=== PATIENT | female | born 1945 | race Caucasian/White ===

== ENCOUNTER 2023-10-13 02:35 | Day surgery (SDC) | payer OTHER, SELFPAY ==
[2023-10-13] VITALS (20 sets, daily range): BP systolic 105–156; BP diastolic 58–84; PULSE 64–80; RESP 16–20; TEMP 36.6–37.3; O2SAT 20–100; BMI 19.3
--- OUTSIDE RECORDS SUMMARY | 2023-10-13 02:52 | XMS_ITS | Data Portability ---
Author Name Unknown Address [address] [place] [address] Phone [phone] Organization [facility], ADMIN Address [address] [address] Assessment Encounter Date Assessment Date Assessment LastModified by Organization Details LastModified Time 06/17/2020 06/17/2020 Your health is very important. Exercise regularly, have a well balanced diet, and try to maintain a healthy weight. Discussed screening for precancerous lesions of the cervix (pap smear; HPV testing). Discussed screening for colon cancer. Discussed review of systems. Referral to primary care as appropriate. Schedule follow up appointment in 2 years. The patient voiced her understanding. All questions were answered in full. Recommend screening mammography (and tomosynthesis, as appropriate). [email or web address] Not available 06/21/2020 09:53:52 Plan of Treatment Reminders Order Date Submit Date Provider Last Modified By Organization Details Last Modified Time Details Appointments None recorded. Lab pap, IG + reflex HPV if ASC-U 2019 020 [place] [facility] ([facility], [address] [place] [address], [place], [address], 0 14:08:49 Referral None recorded. Procedures None recorded. Surgeries None recorded. Imaging None recorded. Medication Orders Estrace 0.01% (0.1 mg/gram) vaginal cream 2019 020 INTERFACE Not available 0 15:44:42 Patient TargetsNo targets recorded. Patient InstructionsNo instructions recorded. Reason for Referral None Reported. Results Created Date Observation Date Name Description Value Unit Range Abnormal Flag LastModifiedBy Organization Detail LastModifiedTime 06/19/20 20 06/22/2020 pap, IG + refle x HPV if ASC-U diagnosis: commen t Not Available [facility] ([facility]) [address] [place], [address], 06/22/2020 14:08:49 06/19/20 20 06/22/2020 pap, IG + refle x HPV if ASC-U specimen adequacy: commen t Not Available [facility] ([facility]) [address] [place], [address], 06/22/2020 14:08:49 06/19/20 20 06/22/2020 pap, IG + refle x HPV if ASC-U clinician provided ICD10: commen t Not Available [facility] ([facility]) [address] [place], [address], 06/22/2020 14:08:49 06/19/20 20 06/22/2020 pap, IG + refle x HPV if ASC-U performed by: commen t Not Available [facility] ([facility]) [address] [place], [address], 06/22/2020 14:08:49 06/19/20 20 06/22/2020 pap, IG + refle x HPV if ASC-U . . Not Available [facility] ([facility]) [address] [place], [address], 06/22/2020 14:08:49 06/19/20 20 06/22/2020 pap, IG + refle x HPV if ASC-U note: commen t Not Available [facility] ([facility]) [address] [place], [address], 06/22/2020 14:08:49 06/19/20 20 06/22/2020 pap, IG + refle x HPV if ASC-U test methodology: commen t Not Available [facility] ([facility]) [address] [place], [address], 06/22/2020 14:08:49 06/19/20 20 06/22/2020 pap, IG + refle x HPV if ASC-U . commen t Not Available [facility] ([facility]) [address] [facility], [place], [address], 06/22/2020 14:08:49 06/17/20 20 05/26/2020 MAMMO , diagn ostic , bilat eral No observ ation record ed. Not Available 0 10:50:52 Result Notes None recorded. Problems Name Status Onset Date Resolution Date Notes Provider Name and Address Organization Details Recorded Time History of clinical finding in subject Active Arnel cabrera, [facility] 06/17/2020 10:00:56 Problem Notes None recorded. Procedures Surgical History Date Name Laterality Status Provider Name and Address Organization Details Recorded Time 05/26/20 20 Date of Last Mammogram completed Arnel cabrera, [facility] 06/17/2020 10:08:46 07/20/19 18 Date of Last Pap Smear completed Arnel cabrera, [facility] 06/17/2020 10:11:25 extraction of cataract completed Arnel cabrera, [facility] 06/17/2020 10:43:30 Dilation and Curettage completed Arnel cabrera, [facility] 06/17/2020 10:43:56 Unlisted px ant segment eye completed Arnel cabrera, [facility] 06/17/2020 10:44:37 procedure on lymph node completed Arnel cabrera, [facility] 06/17/2020 10:45:22 kyphoplasty of fracture of cervical spine using fluoroscopic guidance completed Arnel cabrera, [facility] 06/17/2020 10:46:07 tonsilectomy/monalisa noids completed Arnel cabrera, [facility] 06/17/2020 10:46:34 Imaging Results Imaging Date Name Status LastModified by Organiz ation Details LastModified Time 05/26/2020 MAMMO, diagnostic, bilateral completed [email or web address] Information not available 06/17/2020 10:50:52 Procedure Notes None recorded. Medical Equipment None Reported. Allergies Allergen ID Allergen Name Allergen Category Reaction Reaction Severity Criticality Documentation Date Start Date Code Code System Note Provider Name and Address Organization Details Recorded Time 71695 amoxicill in medicatio n Not available Not available Not available 06/17/2020 723 RxNorm Naidaly Seo null, [place] - [facility] 0 10:00:26 59405 Substance with sulfonami de structure and antibacte rial mechanism of action (substanc e) medicatio n Not available Not available Not available 06/17/2020 32249 8003 SNOMED Naidaly Seo null, [place] - [facility] 0 10:00:32 11446 Plaquenil medicatio n Not available Not available Not available 06/17/202053799 2 RxNorm Naidaly Seo null, [place] - [facility] 0 10:00:40 51286 hydroxych loroquine medicatio n rash Not available Not available 06/17/2020 5521 RxNorm Naidaly Seo null, [place] - [facility] 0 15:14:47 Medications Name Sig Start Date Stop Date Status Note LastModified by Organization Details LastModified Time Evoxac 30 mg capsule take 1 capsule (30 mg) by oral route 3 times per day 2013 active Outside Prescripti on Not Available Not Available Not Available estradiol 0.01% (0.1 mg/gram) vaginal cream APPLY 1-2 GRAMS BY VAGINAL ROUTE 3 TIMES PER WEEK 2021 active Not Available Not Available Not Avai lable Glucosamin e Chondroiti n Maximum Strength 500 mg-400 mg capsule Take by oral route. active Not Available Not Available No t Available magnesium active Not Available Not Emilie ilable Not Available Vitamin C active Not Available Not Emilie ilable Not Available vitamin B complex active Not Available Not Available Not Available zinc active Not Available Not Availa ble Not Available biotin active Not Available Not Availa ble Not Available chromium active Not Available Not Avai lable Not Available Vitamin D3 active Not Available Not Av ailable Not Available Calcium 500 active Not Available Not Available Not Available DHA Algal-900 active Not Available Not Available No t Available Vitals Date Recorded Body height Body weight Systolic blood pressure Diastolic blood pressure Provider Name and Address Organization Details Last Updated DateTime 04/13/2010 168.91 cm 62817.084 4 g 106 mm[Hg] 58 mm[Hg] Not Available [facility] 02/09/2020 05:30:49 Date Recorded Body height Body weight Systolic blood pressure Diastolic blood pressure Provider Name and Address Organization Details Last Updated DateTime 07/20/2017 168.91 cm 48378.714 9 g 116 mm[Hg] 70 mm[Hg] Not Available [facility] 02/09/2020 05:30:49 Date Recorded Body height Body weight Systolic blood pressure Diastolic blood pressure Provider Name and Address Organization Details Last Updated DateTime 04/26/2012 168.91 cm 70921.676 7 g 100 mm[Hg] 60 mm[Hg] Not Available [facility] 02/09/2020 05:30:49 Date Recorded Body height Body weight Systolic blood pressure Diastolic blood pressure Provider Name and Address Organization Details Last Updated DateTime 05/02/2016 168.91 cm 60684.842 4 g 110 mm[Hg] 60 mm[Hg] Not Available [facility] 02/09/2020 05:30:49 Date Recorded Body height Body weight Systolic blood pressure Diastolic blood pressure Provider Name and Address Organization Details Last Updated DateTime 04/19/2011 168.91 cm 19824.230 9 g 104 mm[Hg] 68 mm[Hg] Not Available [facility] 02/09/2020 05:30:49 Date Recorded Body height Body weight Systolic blood pressure Diastolic blood pressure Provider Name and Address Organization Details Last Updated DateTime 04/01/2008 168.91 cm 88473.453 8 g 124 mm[Hg] 74 mm[Hg] Not Available [facility] 02/09/2020 05:30:49 Date Recorded Body height Body weight Systolic blood pressure Diastolic blood pressure Provider Name and Address Organization Details Last Updated DateTime 05/04/2015 168.91 cm 83188.560 5 g 116 mm[Hg] 70 mm[Hg] Not Available [facility] 02/09/2020 05:30:49 Date Recorded Body height Body weight Systolic blood pressure Diastolic blood pressure Provider Name and Address Organization Details Last Updated DateTime 01/08/2014 168.91 cm 15734.307 2 g 114 mm[Hg] 68 mm[Hg] Not Available [facility] 02/09/2020 05:30:49 Date Recorded Body height Body weight Systolic blood pressure Diastolic blood pressure Provider Name and Address Organization Details Last Updated DateTime 04/09/2009 168.91 cm 21351.823 3 g 112 mm[Hg] 64 mm[Hg] Not Available [facility] 02/09/2020 05:30:49 Date Recorded Body height Body weight Systolic blood pressure Diastolic blood pressure Provider Name and Address Organization Details Last Updated DateTime 01/22/2015 168.91 cm 83348.366 2 g 100 mm[Hg] 60 mm[Hg] Not Available [facility] 02/09/2020 05:30:49 Date Recorded Body height Body mass index (BMI) Body weight Systolic blood pressure Diastolic blood pressure Provider Name and Address Organization Details Last Updated DateTime 06/17/2020 170.18 cm 17.9 kg/m2 74368.53 g 114 mm[Hg] 74 mm[Hg] Arnel cabrera [facility] 0 15:13:49 Social History Question Answer Notes LastModified by Organizat ion Details LastModified Time Tobacco Smoking Status Never Smoker Arnel cabrera [facility] 06/17/2020 10:40:38 What Is Your Level Of Alcohol Consumption? Occasional [email or web address] Information not available 06/17/2020 What Is Your Level Of Caffeine Consumption? Occasional [email or web address] Information not available 06/17/2020 Which Illicit Or Recreational Drugs Have You Used? None [email or web address] Information not available 06/17/2020 Do You Or Have You Ever Used E-cigarettes Or Vape? Never Used Electronic Cigarettes [email or web address] Information not available 06/17/2020 Marital Status [email or web address] Informat ion not available 06/17/2020 What Was The Date Of Your Most Recent Tobacco Screening? 06/17/2020 [email or web address] Information not available 06/17/2020 Performs Monthly Self-breast Exam? Yes [email or web address] Information no t available 06/17/2020 Do You Use Your Seat Belt Or Car Seat Routinely? Yes [email or web address] Information not available 06/17/2020 Do You Or Have You Ever Used Smokeless Tobacco? [id number] [email or web address] Information not available 06/17/2020 How Much Tobacco Do You Smoke? No [email or web address] Information not available 06/17/2020 How Many Years Have You Smoked Tobacco? 0 Information not available 06/17/2020 Sex: Female Functional Status Question Answer Note LastModified by Organization D etails LastModified Time What is your exercise level? Moderate [email or web address] Information not available 06/17/2020 Mental Status None recorded. Family History Relationship Description Onset Age of this Age Resolved Age Notes Unspecified Relation Depressive disorder Father Diabetes mellitus Father Heart disease Mother Heart disease Mother Hypertensive disorder Sister Family history of stroke Medical History No medical history recorded. Gynecological History Statement/Question Response Date of Last Mammogram 05/26/2020 Date of Last Colonoscopy Menses Monthly N Date of Last Pap Smear 07/20/2017 04/09/2009 Age at Menarche 13 Obstetrics History GPAL:G 2 P 0 0 2 0 Type Value Multiple Births 0 Full Term 0 Induced 0 Spontaneous 2 Premature 0 Living 0 Ectopics 0 Total 2 Immunizations Vaccine Type Date Status Provider Name and Address Organization Details Recorded Time influenza, injectable, quadrivalent 04/26/2021 completed MON[facility] 05/03/2021 10:25:16 Past Encounters Encounter ID Performer Location Encounter Start Date Encounter Closed Date Diagnosis/Indication Diagnosis SNOMED-CT Code [id number] Claudia Landon MD [address] [place] [id number] 06/17/2020 14:43:48 06/17/2020 16:41:04 Gynecologic examination [id number] Atrophic vaginitis 36308 000 Health Concerns Section Related Observation LastModified by Organization Detai ls LastModified Time None Recorded Concern Status LastModified by Organization Details LastModified Time None Recorded Advance Directives Directive None Recorded Payers Encounter Date Sequence Insurance Name Policy Number Policy Bullock Covered Member ID Bullock Member ID Guarantor Name 06/17/2020 1 [employer] (MEDICARE REPLACEMENT/A DVANTAGE - PPO) Jt Levi [id number] Jt Levi Notes Date Note Type Note Provider Name and Address Organization Details Recorded Time 06/17/2020 text/html HPI Notes: Omar kelly [employer] - [facility] Reported by patient. Menstrual cycle: menopausal Urinary symptoms: No hematuria; No incontinence Vulvar complaints: None Vaginal complaints: Normal vaginal discharge Breast: No breast pain; No breast lump; No nipple discharge Sexual complaints: No sexual complaints; No pain during intercourse/sexual function; Normal libido Menopausal Symptoms: No menopausal symptoms; Normal vaginal lubrication Psychological symptoms: No depression; No anxiety; No PMDD Multimedia Assistant offered per [facility] policy. Multimedia Assistant was DECLINED. Claudia Landon MD [address] [facility] [address], [place], [address], [facility] 06/21/2020 09:54:27 OBGyn Episode No OBEpisode recorded.
--- NOTE | 2023-10-13 03:15 | PM.IMHP1 ---
Hospitalist- H&P: HPI History of Present Illness Date Seen: 10/13/23 Chief complaint: cholecystitis Narrative: Nora Levi is a 78 year old female with a past medical history notable for Sjogren's syndrome but otherwise healthy who presented with abdominal pain. The patient started having abdominal pain the day prior to admission while on a car ride back to [place]. She initially thought it was a digestive issue so she took a probiotic as well as some activated charcoal with some minimal improvement initially. However the pain continued to worsen throughout the day. It is located in the right upper quadrant worse with movement. It was associated with nausea, 2 episodes of vomiting the day prior to admission. She has not had vomiting on the day of admission. However she had fevers and shaking chills Meds Home Medications and Allergies Allergies Allergy/AdvReac Type Severity Reaction Status Date / Time hydroxychloroquine Allergy Verified 10/13/23 03:15 Sulfa (Sulfonamide Allergy Verified 10/13/23 03:15 Antibiotics)
--- NOTE | 2023-10-13 03:36 | W.PM.TELEH&P ---
Telehealth- H&P: HPI History of Present Illness Date Seen: 10/13/23 Chief complaint: cholecystitis Narrative: Nora Levi is seen as an Interactive Telehealth visit. Nora Levi is a 78 year old female with past medical history notable for Sjogren's syndrome but otherwise healthy who presented with abdominal pain. The patient started having abdominal pain the day prior to admission while on a car ride back to [place]. She initially thought it was a digestive issue so she took a probiotic as well as some activated charcoal with some minimal improvement initially. However the pain continued to worsen throughout the day. It is located in the right upper quadrant worse with movement. It was associated with nausea, 2 episodes of vomiting the day prior to admission. She has not had vomiting on the day of admission. However she had fevers and shaking chills which prompted her to seek treatment at [facility] in [facility]. There she was noted to be febrile, CT scan was concerning for acute cholecystitis. She had mild leukocytosis. She was treated with ceftriaxone and Flagyl. No history of prior abdominal surgery. No previous episodes of pain like this. She denies any other new concerns. Review of Systems Status of ROS: Reports: 10 or more systems reviewed and unremarkable except as noted in History and below [facility] Medical History (Updated 10/13/23 @ 03:39 by Venkatesh Brown MD) Sjogren syndrome, unspecified ?M35.00 - Sjogren syndrome, unspecified (ICD-10) Surgical History (Updated 10/13/23 @ 03:39 by Venkatesh Brown MD) History of spinal surgery ?Z98.890 - Other specified postprocedural states (ICD-10) History of tonsillectomy ?Z90.89 - Acquired absence of other organs (ICD-10) Family History (Updated 10/13/23 @ 03:40 by Venkatesh Brown MD) Father Cardiovascular disease Mother Cardiovascular disease Social History (Updated 10/13/23 @ 03:40 by Venkatesh Brown MD) What is your current living situation?: I presently have a place to live Problems where you live: no known problems Problems where you live details: N/A In the past 12 months, utilities in danger of being shut off: no In past 12 months, lack of transportation kept you from medical appts, meetings, work, or getting things needed for daily living: no In the past 12 mos, have been you worried that your food would run out before you had money to buy more?: never true In the past 12 mos, the food you bought just didn't last and you didn't have money to buy more?: never true Smoking Status: Never smoker Do you use any of these nicotine containing products: None Second hand tobacco smoke exposure: No How often do you have a drink containing alcohol: monthly or less Alcohol type: wine How many standard drinks containing alcohol do you have on a typical day: 1 or 2 How often do you have six or more drinks on one occasion: Never AUDIT-C Alcohol total score: 1 Non-prescribed substance use: denies use Caffeine: Yes (Cup of coffee every so often) How often does anyone, including family, friends and others, physically hurt you: never How often does anyone, including family, friends and others, insult or talk down to you: never How often does anyone, including family, friends and others, threaten you with harm: never How often does anyone, including family, friends and others, scream or curse at you: never service: No Meds Home Medications and Allergies Allergies Allergy/AdvReac Type Severity Reaction Status Date / Time amoxicillin Allergy Rash Verified 10/13/23 04:07 hydroxychloroquine Allergy Verified 10/13/23 03:15 Sulfa (Sulfonamide Allergy Verified 10/13/23 03:15 Antibiotics) Exam Narrative Exam Narrative: Physical Exam GENERAL: ?vital signs reviewed, well developed and nourished, in no distress HEENT: pupils are equal and round, extraocular movements are grossly within normal limits and oral mucosa is dry. NECK: Supple without lymphadenopathy or thyromegaly according to nursing staff examination observation HEART: Regular rate and rhythm without any rubs,gallops. Possible faint 1 out of 6 systolic murmur LUNGS: Clear to auscultation bilaterally with good air movement throughout ABDOMEN: Observation from nurse assisted exam, abdomen appears soft, moderately tender in the RUQ, and nondistended with Positive bowel sounds noted. EXTREMITIES: Strength and sensation is observed to be grossly within normal limits in the upper and lower extremities.? No focal strength deficit is observed. SKIN:? Observed warm and dry with color normal Assessment and Plan Assessment and plan (1) Acute cholecystitis: Status: Acute (2) Sjogren syndrome, unspecified: Status: Acute Plan Acute cholecystitis General surgery aware, plan for OR in a.m. Patient received ceftriaxone and Flagyl at outside emergency room, which will be continued WBC 11.0, hemoglobin 11.8, platelets 139. LFTs were within normal limits Per report from general surgery imaging was concerning for acute cholecystitis, they accepted transfer but requested hospitalist admission Sjogren's syndrome Not on immunosuppression other history includes HAY History of MALT Full code confirmed on admission Prior to admission home medications that were felt to be needed immediately have been ordered. The remainder of the home medications will await pharmacy reconciliation and will be ordered by the attending provider in the a.m. Telehealth Visit: Today's History and Physical is provided via interactive telehealth by Dr. Venkatesh Brown MD. Patient is located at [facility]. Provider is located at [facility]. Nursing staff assisted with the patient's exam. The visit being done today meets criteria for a telehealth visit and the patient or patients parent/guardian is aware the visit is a telehealth visit. Start Time: 308 End Time: 315 Medical Complexity: Moderate ~~~~~~~~~~~~~~~~ Dr. Venkatesh Brown ~~~~~~~~~~~~~~~~ Disclaimer: This note may contain dictation using voice recognition software. As a result, there may be errors that have gone undetected. Please consider this when interpreting information found in this note. Telehealth: Statement Statement Telehealth Visit: Today's History and Physical is provided via interactive telehealth by Venkatesh Brown MD.? Patient is located at [facility].? Provider is located at [facility].? Nursing staff assisted with the patient's exam. The visit being done today meets criteria for a telehealth visit and the patient or patient?s parent/guardian is aware the visit is a telehealth visit. Camera Start Time: 03:08 Camera End Time: 03:15
[2023-10-13] MEDS: HYDROmorphone 0.5 mg/0.5 ml inj IVP (04:00)
[2023-10-13] MEDS: SODIUM CHLORIDE 0.9 % (FLUSH) 10 ML SYRINGE 5 ML IVF ×2 (04:00→08:20)
--- NOTE | 2023-10-13 05:52 | XR_ITS ---
Patient: CRISPIN CALVERT Facility:?[facility] Patient ID:?[id number] Site Patient ID:?[id number]. Site :?[id number] Study:?XRay-Chest 1V PORTABLE-10/13/2023 6:27:14 AM Ordering Physician:MATT Final Report: INDICATION: Preop TECHNIQUE: Chest 1 views. COMPARISON: None. FINDINGS: Cardiovascular and mediastinum: Heart size and vasculature are normal in caliber and appearance. Lungs and pleural spaces: Hyperinflated lungs and interstitial lung markings likely a combination of COPD and mild interstitial edema. Small bilateral pleural effusions. No visualized pneumothorax. No focal consolidation. Bones and soft tissues: Sclerotic lesion or vertebral body augmentation lower thoracic spine. IMPRESSION: Hyperinflated lungs and interstitial lung markings likely a combination of COPD and mild interstitial edema. Small bilateral pleural effusions. Sclerotic lesion or vertebral body augmentation lower thoracic spine. Dictated by Caden Will MD @ 10/13/2023 6:59:23 AM Signed by:?Caden Will MD @10/13/2023 6:59:23 AM (Electronic Signature)
[2023-10-13] MEDS: 0.9 % SODIUM CHLORIDE 250 ml IV (06:01)
[2023-10-13] MEDS: metroNIDAZOLE 500 MG/100 ML PIGGYBACK 100 MG IVPB (06:01)
--- NOTE | 2023-10-13 07:27 | PC.NURSE ---
ADMISSION/SHIFT NOTE: Pt was a direct admission from [address] via EMS. Pt fatigued, A&O. Oxygen saturations mid 90's on RA. Pain reported 6/10, PRN Dilaudid given with pt reporting relief. Denies N/V, SOB, and CP. NPO since lunch yesterday. Pt has not yet been out of bed. EKG done this AM. Antibiotics given as ordered. Plan for surgery today.
--- NOTE | 2023-10-13 08:29 | PM.GSCN ---
History of Present Illness Consult details Date Seen: 10/13/23 Consult date: 10/13/23 Narrative: 78-year-old female with Sjogren's disease presented to outside hospital with right mid abdominal pain and was found to have acute cholecystitis. The outside hospital emergency room contacted our hospital for evaluation and treatment since we did not have a general surgeon on-call at their facility. Patient states that she developed right mid/right lower quadrant abdominal pain on Monday. She was traveling on Monday and her pain was getting more severe. The pain was worse with movement and coughing. Patient had vomiting on Monday but not yesterday. She did not eat much yesterday. Her last bowel movement was yesterday but she has not been passing much gas. She had an episode of chills but she did not take her temperature to find out if she had a fever. At the outside hospital ER (see epic) she was found to have a normal WBC of 11. Her liver function tests were normal with exception of AST of 47. Her lipase was normal. Her basic metabolic panel had sodium 132 with the rest of electrolytes be normal. Her hemoglobin was 11.8 and that was slightly decreased from 12.3 in December of 2022. An abdominal CT was obtained that showed distended gallbladder with thickened gallbladder wall and surrounding edema. There was no evidence of cholelithiasis. There are mildly prominent intrahepatic bile ducts but the common bile duct appeared normal. Radiology also commented on possible mucus plugging in the right middle lobe of unknown etiology. Review of Systems Narrative: General: no fevers HENT: no problems swallowing CV: no shortness of breath Resp: patient usually has coughing when she gets up in the morning. In that resolved spontaneously. GI: See above Skin: no new rashes Musculoskeletal: Patient had back surgery Neuro: no muscle weakness Psyche: no depression, no anxiety PFSH [facility] Medical History Sjogren syndrome, unspecified ?M35.00 - Sjogren syndrome, unspecified (ICD-10) Surgical History (Updated 10/13/23 @ 08:34 by Edna Porter MD) Hx of superficial parotidectomy ?Z98.890 - Other specified postprocedural states (ICD-10) History of spinal surgery ?Z98.890 - Other specified postprocedural states (ICD-10) History of tonsillectomy ?Z90.89 - Acquired absence of other organs (ICD-10) Family History Father Cardiovascular disease Mother Cardiovascular disease Social History What is your current living situation?: I presently have a place to live Problems where you live: no known problems Problems where you live details: N/A In the past 12 months, utilities in danger of being shut off: no In past 12 months, lack of transportation kept you from medical appts, meetings, work, or getting things needed for daily living: no In the past 12 mos, have been you worried that your food would run out before you had money to buy more?: never true In the past 12 mos, the food you bought just didn't last and you didn't have money to buy more?: never true Smoking Status: Never smoker Do you use any of these nicotine containing products: None Second hand tobacco smoke exposure: No How often do you have a drink containing alcohol: monthly or less Alcohol type: wine How many standard drinks containing alcohol do you have on a typical day: 1 or 2 How often do you have six or more drinks on one occasion: Never AUDIT-C Alcohol total score: 1 Non-prescribed substance use: denies use Caffeine: Yes (Cup of coffee every so often) How often does anyone, including family, friends and others, physically hurt you: never How often does anyone, including family, friends and others, insult or talk down to you: never How often does anyone, including family, friends and others, threaten you with harm: never How often does anyone, including family, friends and others, scream or curse at you: never service: No Meds Home Medications and Allergies Allergies Allergy/AdvReac Type Severity Reaction Status Date / Time amoxicillin Allergy Rash Verified 10/13/23 04:07 hydroxychloroquine Allergy Verified 10/13/23 03:15 Sulfa (Sulfonamide Allergy Verified 10/13/23 03:15 Antibiotics) Exam Narrative: Exam Narrative: General appearance: Alert, cooperative, and in no distress Pulmonary: Chest symmetric, lungs clear bilaterally Cardiovascular Heart: Regular rate and rhythm, S1, S2, no murmurs/rubs/gallops Gastrointestinal Abdominal: soft, not distended patient is tender to palpation in the right lower quadrant and right upper quadrant, she has positive Mahmood sign and localized peritonitis in the right upper quadrant., Skin: Normal skin color, texture, and turgor. No rashes or lesions. Psychiatric: Alert, cooperative, normal affect. Const: Vital Signs, click to edit/add: Vital Signs - 24 hr 10/13/23 03:05 Pulse Rate [Left P ulse Oximeter] 72 Respiratory Rate 18 Blood Pressure [Le ft Arm] 133/73 Pulse Oximetry 96 Oxygen Delivery Me thod Room Air Results Labs Labs: All other labs normal. Progress Note:A&P Assessment and plan (1) Acute cholecystitis: Status: Acute Plan 78-year-old female presents with acute cholecystitis. I discussed with the patient her laboratory findings and her CT findings. Her gallbladder appears very distended and has an inflammatory rind around the gallbladder. On clinical exam patient has localized peritonitis in the right upper quadrant concerning for acute cholecystitis. I recommended to proceed with laparoscopic cholecystectomy. The procedure was discussed in detail. The risks associated procedure including infection, bleeding, injury to the common bile duct, and injury to intra-abdominal organs were all discussed with the patient, and she agreed to proceed. We also discussed her incidental findings on her CT scan. Radiology mentioned possible mucus plugging in the right middle lobe. Patient has no history of COPD and this could be related to her acute cholecystitis and not taking deep breaths due to pain. Patient is not a smoker and does not have history of COPD. Patient's EKG did not show any heart strain and she had no symptoms of chest pain. Patient's chest x-ray showed increased interstitial markings and small pleural effusions bilaterally. This was discussed with the hospitalist and given patient's no history of cardiac issues and cardiac symptoms and her severe acute cholecystitis, this is most likely atelectasis due to hypoventilation. Patient is very active and exercises 3 times a week and walks all around [place]. Patient was deemed to be safe to proceed with surgery today.
[2023-10-13] MEDS: LACTATED RINGERS 1000 ML 1,000 ML 100 ML IV ×2 (08:46→09:33)
--- NOTE | 2023-10-13 08:46 | P.GSOP_ITS ---
Operative Note Date of procedure: 10/13/23 Pre-op diagnosis: 1. Acute cholecystitis. Post-op diagnosis: 1. Acute hemorrhagic cholecystitis. Type of Procedure: 1. Laparoscopic cholecystectomy. Indications: 78-year-old female was transferred to all Hospital from outside facility with acute cholecystitis. Patient started to have pain 2 days ago. The pain was in the right mid abdomen/right lower quadrant. The pain was getting severe and was worse with movement and coughing. Upon her workup she was found to have a normal WBC. Her AST was slightly elevated but the rest of the liver function tests and lipase were normal. CT scan of the abdomen was obtained and showed distended gallbladder with pericholecystic inflammation and fluid. The common bile duct was thought to be normal on her CT scan and she had mild intrahepatic bile duct dilatation. On clinical exam patient had tenderness to palpation in the right mid abdomen and right upper quadrant with localized peritonitis in the right upper quadrant. Given patient's history and her CT findings, acute cholecystitis was suspected, and laparoscopic cholecystectomy was recommended. The procedure was discussed in detail. The risks associated procedure including infection, bleeding, injury to intra-abdominal organs, and common bile duct injury were all discussed with the patient, and she agreed to proceed. Procedure Description: After discussing the risks and benefits of the procedure, the patient signed informed consent.? The operative site was marked and the patient was brought to the operating room and placed on the operating table in supine position.? Care was taken to pad the patient's pressure points.?? The patient was then intubated by anesthesia.?? The operative site was then prepped and draped in the usual sterile fashion.? A time-out was then performed. A 5-mm laparoscopy port was placed in the left upper quadrant guided by a 5-mm laparoscope placed into a translucent trochar.~ Passage through the layers of the abdominal wall was visualized with the laparoscope. At least 2 attempts were made to advance this scope into the abdomen but the abdomen was not insufflating well and it was difficult to tell if the trocar was in the abdomen. I then elected to into the abdomen through the infraumbilical incision. Local anesthetic was injected inferior to the umbilicus. The skin was incised with a scalpel. The anterior fascia was grasped with Jeovany clamps and incised with Metzenbaum scissors. Posterior fascia and peritoneum were grasped with Nancy clamps and incised with scissors. 5 mm port was then advanced into the abdomen and abdomen was insufflated. A pneumoperitoneum was established. The left lower quadrant was examined and peritoneal opening from previous attempted to enter the abdomen was noted. Falciform ligament had air from attempted entrance. No intra-abdominal organ injury was identified. 5 mm port was then placed under direct visualization in the left upper quadrant. The abdominal working cavity was small. The infraumbilical port was then upsized to a 10 mm port. Two additional 5 mm ports were placed under direct visualization in the right lower quadrant and right mid abdomen. The gallbladder was identified and appeared to be hemorrhagic. A laparoscopic needle and 60 mL syringe were used to decompress the gallbladder. About 10 mL of bloody appearing bile was suctioned out and sent for culture. The infundibulum was grasped and retracted laterally, exposing the peritoneum overlying the triangle of Calot. This was then divided and exposed in a blunt fashion and with hook cautery. Common bile duct was not identified but care was taken not to injure it. The inflammatory rind was thickened around the gallbladder making the dissection difficult. The node of Calot was identified and proximal feeding vessel to this node was clipped with 5 mm clip proximally and distally and divided with Metzenbaum scissors. The cystic duct was then dissected circumferentially. The cystic artery appeared to be immediately posterior to the cystic duct, and I was not able to visualize clearly the structures posterior to the cystic artery. The cystic duct and the cystic artery were both going into the gallbladder. The cystic duct was then clipped with two 5 mm clips on the patient's side and a single clip on the specimen side and divided with scissors. I was then able to visualize the cystic artery clearly. This was going into the gallbladder. The cystic artery was then clipped with 5 mm clips distally and proximally and divided between the clips. An inflammatory rind in the medial gallbladder fossa was going into the gallbladder. It was difficult to tell if it was a small blood vessel or inflammatory rind. I elected to clip this medially with a 5 mm clip and divided with scissors near the gallbladder. This was an inflammatory rind. The gallbladder was dissected from the liver bed in retrograde fashion using hookcautery. The gallbladder was firmly attached to the liver at the liver edge. Bleeding from the liver edge was controlled with cautery. The gallbladder was placed into an Endo-Catch bag and removed through the infraumbilical incision. Skin incision and fascial incision had to be enlarged at the infraumbilical incision to accommodate removal of the gallbladder. This was done under direct visualization. Surgical site was examined for bleeding and No bleeding was seen in the surgical field. The fascia of the infraumbilical incision was then closed with a running 0-0 vicryl suture. This closure was examined intra-abdominally and no intra- abdominal structures were incarcerated in the closure. Pneumoperitoneum was completely reduced after viewing removal of the trocars under direct vision. The dermis of infraumbilical incision was then reapproximated with interrupted 3-0 Vicryl sutures. The skin was then closed with 4-0 monocryl and steristrips were applied. The infraumbilical skin incision was closed with Dermabond. Instrument, sponge, and needle counts were correct at closure and at the conclusion of the case. The patient was transferred to PACU in stable condition. Findings: Acute hemorrhagic cholecystitis. Anesthesia: GETA Surgeon: Edna Porter MD Estimated blood loss (mL): 10 Additional Specimen Information: 1. Bile for culture. 2. Gallbladder. Condition: stable Disposition: PACU
[2023-10-13] MEDS: CEFAZOLIN 1 GM inj IVP (09:04)
--- NOTE | 2023-10-13 09:42 | SUR.OPER ---
Gallbladder fluid sent for aerobic and anerobic culture and gram stain
[2023-10-13] MEDS: BUPIVACAINE 0.25% 30 ML INJECTION (10:42)
--- NOTE | 2023-10-13 11:06 | W.ANESCHARGE ---
Anesthesia Charges Start Date/Time Anesthesia Start Date: 10/13/23 Anesthesia Start Time: 08:46 Stop Date/Time Anesthesia Stop Date: 10/13/23 Anesthesia Stop Time: 11:03 Summary Extremes of Age - Over 70 or under 1: MDA
--- NOTE | 2023-10-13 11:07 | W.ANESCHARGE ---
Anesthesia Charges Start Date/Time Anesthesia Start Date: 10/13/23 Anesthesia Start Time: 08:46 Stop Date/Time Anesthesia Stop Date: 10/13/23 Anesthesia Stop Time: 11:03
--- NOTE | 2023-10-13 11:55 | SUR.PHASEI ---
Patient met anesthesia discharge criteria from PACU. Communication with med/surg nurse regarding O2 saturation.
[2023-10-13] MEDS: ERTAPENEM 1 GM in 0.9 % SODIUM CHLORIDE Mini-bag 100 ML IVPB (13:43)
--- NOTE | 2023-10-13 14:05 | PC.NURSE ---
End of Shift Note: Patient went to surgery and return to the unit around 1200. Has been sleeping since her arrival to the unit but does arouse easily. She has not complained of any pain since she has returned to the unit. is at bedside. will continue to monitor until next shift arrives. Have not been able to teach her the IS as she is sleeping.
--- NOTE | 2023-10-13 17:18 | P.DS_ITS ---
DS: Providers Provider Date Seen: 10/13/23 Primary care physician: Shanell Peña MD Attending Physician on discharge: Edna Porter MD DS: Diagnosis Discharge Diagnosis (1) Acute cholecystitis: Status: Acute (2) S/P laparoscopic cholecystectomy: Status: Acute DS: Summary Hospital Course Hospital Course: Patient presented to ER with acute cholecystitis. She underwent lap cholecystectomy. She did well post operatively. She had minimal pain. She was tolerating regular diet, urinating and ambulating. Time Spent with Patient Time attestation: Total time spent providing and/or coordinating discharge services: Exam Narrative: Exam Narrative: not see prior to discharge Const: Vital Signs, click to edit/add: Vital Signs - 24 hr 10/13/23 03:05 10/13/23 06:40 10/13/23 11:05 Temperature 97.9 F 99.2 F Pulse Rate 68 80 Pulse Rate [Left P ulse Oximeter] 72 Respiratory Rate 18 18 20 Blood Pressure 141/71 H 139/82 Blood Pressure [Le ft Arm] 133/73 Pulse Oximetry 96 100 90 Oxygen Delivery Me thod Room Air Room Air Nasal Cannula Oxygen Flow Rate 2 10/13/23 11:10 10/13/23 11:15 10/13/23 11:20 Temperature Pulse Rate 78 78 79 Pulse Rate [Left P ulse Oximeter] Respiratory Rate 20 20 20 Blood Pressure 156/84 H 154/81 H 149/83 H Blood Pressure [Le ft Arm] Pulse Oximetry 95 96 96 Oxygen Delivery Me thod Oxygen Flow Rate 10/13/23 11:25 10/13/23 11:30 10/13/23 11:37 Temperature 99.2 F Pulse Rate 79 78 76 Pulse Rate [Left P ulse Oximeter] Respiratory Rate 20 20 20 Blood Pressure 144/81 H 140/78 H 149/81 H Blood Pressure [Le ft Arm] Pulse Oximetry 96 98 20 L Oxygen Delivery Me thod Nasal Cannula OxyMask Oxygen Flow Rate 2 5 10/13/23 12:10 10/13/23 12:23 10/13/23 12:45 Temperature 98.5 F 98.6 F 97.8 F Pulse Rate 69 73 70 Pulse Rate [Left P ulse Oximeter] Respiratory Rate 16 16 16 Blood Pressure 132/64 124/60 105/63 Blood Pressure [Le ft Arm] Pulse Oximetry 92 90 90 Oxygen Delivery Me thod Room Air Room Air Room Air Oxygen Flow Rate 10/13/23 13:00 10/13/23 13:30 10/13/23 14:00 Temperature 97.8 F 98.5 F 98.5 F Pulse Rate 70 72 76 Pulse Rate [Left P ulse Oximeter] Respiratory Rate 16 16 16 Blood Pressure 108/64 112/62 114/67 Blood Pressure [Le ft Arm] Pulse Oximetry 92 95 96 Oxygen Delivery Me thod Room Air Nasal Cannula Nasal Cannula Oxygen Flow Rate 1 1 10/13/23 14:30 10/13/23 15:00 Temperature 98.5 F Pulse Rate 76 Pulse Rate [Left P ulse Oximeter] 64 Respiratory Rate 16 16 Blood Pressure 115/61 Blood Pressure [Le ft Arm] Pulse Oximetry 96 Oxygen Delivery Me thod Nasal Cannula Oxygen Flow Rate 1 DS: Data Data Completed and Pending Labs on day of discharge: Preliminary micro results at discharge 10/13/23 11:00 Aerobic Culture - Preliminary Gallbladder Fluid Culture in Progress Anaerobic Culture - Preliminary Culture in Progress Discharge Plan Discharge Disposition: Home, Self-Care Discharging Surgeon: Edna Porter Follow-Up Appointment: 2 weeks [facility] Prescriptions: New hydrocodone-acetaminophen 5-325 mg tablet 1 tab PO Q6H PRN (Reason: pain) Qty: 20 0RF levofloxacin 500 mg tablet 500 mg PO DAILY Qty: 5 0RF Activity Level: No strenuous activity Discharge Diet: Regular Patient Instructions: Surgical Site Infections (DC), General Anesthesia (DC), Laparoscopic Cholecystectomy (DC), Post-Operative Instructions: Laparoscopic Cholecystectomy Forms: [facility] Info Instructions Follow-up: Edna Porter MD [Staff Physician] - Discharge Orders: Discharge Order (Routine); Ordered 10/13/23 Ordered By: Edna Porter
[2023-10-13] MEDS: HYDROCODONE-ACETAMIN 5-325 MG 1 TAB PO (19:12)
--- NOTE | 2023-10-13 19:54 | PC.NURSE ---
Insty meds presribed for [place] to patient prior to discharge d/t incorrect pharmacy on file. Patient successful able to obtain her pain medication and plans to burr picker Levofloxacin from her pharmacy tomorrow morning. Pt discharged to home in the care of her at 1926. Pt and her verbalized understanding of discharge instructions and follow up appointment.
== END 2023-10-13 19:25 | disposition home or self-care (01) ==
LOC: MEDSURG 11:53 → SS 13:50 → MEDSURG 14:28
PROVIDERS: PCP Family Medicine; Visit Provider Surgery
PROC: 0FT44ZZ Resection of Gallbladder, Percutaneous Endoscopic Approach (ICD-10-PCS; CPT 47562; principal; 2023-10-13 08:30)
DX: K81.0 Acute cholecystitis (principal); M35.00 Sjogren syndrome, unspecified; K65.0 Generalized (acute) peritonitis
CPT/HCPCS: 47562; 00790; 71045; 87070; 87075; 87116; 87186; 87205; 88304; 93005; 99100; A9270; J0330; J0665; J0690; J1100; J1170; J1335; J1836; J2405; J2704; J3010; J3490; J7050; J7120

== ENCOUNTER 2024-08-16 09:45 | Outpatient (CLI) | payer OTHER, SELFPAY ==
--- NOTE | 2024-08-16 11:06 | W.ANESCHARGE ---
Anesthesia Charges Start Date/Time Anesthesia Start Date: 08/16/24 Anesthesia Start Time: 10:35 Stop Date/Time Anesthesia Stop Date: 08/16/24 Anesthesia Stop Time: 11:07 Summary Extremes of Age - Over 70 or under 1: MDA Coding CPT Codes CPT Codes: ANES LWR INTST NDSC NOS - 38258 ([id number]) P2 - PATIENT W/MILD SYST DISEASE, QK - SUPERVISOR INSPECTION ROOM 2-4 CNCRNT ANES PROC, QX - WOOL CARDER SVC W/ MD MED DIRECTION Additional Codes: Summary - Extremes of Age - Over 70 or under 1: DIONTE ([id number])
--- NOTE | 2024-08-16 11:12 | W.ANESCHARGE ---
Anesthesia Charges Start Date/Time Anesthesia Start Date: 08/16/24 Anesthesia Start Time: 10:35 Stop Date/Time Anesthesia Stop Date: 08/16/24 Anesthesia Stop Time: 11:07 Summary Extremes of Age - Over 70 or under 1: LEAD INSTALLER Coding CPT Codes CPT Codes: SHELLY LWR INTST SCR COLSC - 20437 ([id number]) P2 - PATIENT W/MILD SYST DISEASE, QX - LEAD INSTALLER SVC W/ MD MED DIRECTION, QK - COMPUTER REPAIR ENGINEER 2-4 CNCRNT ANES PROC Additional Codes: Summary - Extremes of Age - Over 70 or under 1: LEAD INSTALLER ([id number])
== END 2024-08-16 09:46 | disposition home or self-care (01) ==
PROVIDERS: PCP Family Medicine; Visit Provider Internal Medicine Gastroenterology
DX: Z12.11 Encounter for screening for malignant neoplasm of colon (principal); Z86.0100 Personal history of colon polyps, unspecified
CPT/HCPCS: 00811; 00812; 45378; 99100; J2704